=== PATIENT | male | born 1975 | race Caucasian/White ===

== ENCOUNTER 2016-12-01 21:31 | Emergency (ER) | payer OTHER | END 2016-12-02 00:46 | disposition home or self-care (01) | LOC: FER 21:31 | DX: G89.18 Other acute postprocedural pain (principal); M25.512 Pain in left shoulder; Z88.0 Allergy status to penicillin; Z98.890 Other specified postprocedural states | CPT/HCPCS: J1170; J1885; J2795; J3010 ==

== ENCOUNTER → 2016-12-01 | Day surgery (SDC) | payer OTHER ==
[~2016-12-01] VITALS: Ht 185.4 cm; Wt 101.3 kg
[2016-12-01 07:07] LABS: HCT 43.8 % (42.0-52.0); MCH 30.2 pg (25.0-31.0); MCHC 34.2 g/dL (32.0-36.0); MCV 88.1 fL (78.0-100.0); MPV 8.1 fL (6.0-9.5); RBC 4.97 M/uL (4.70-6.00); RDW 14.2 % (11.5-14.0); WBC 8.2 K/uL (4.0-10.5)
== END | disposition home or self-care (01) ==
LOC: FAS 06:26
PROVIDERS: Legal Medicine
DX: M75.102 Unspecified rotator cuff tear or rupture of left shoulder, not specified as traumatic (principal); M19.012 Primary osteoarthritis, left shoulder; F17.210 Nicotine dependence, cigarettes, uncomplicated; Z88.0 Allergy status to penicillin
CPT/HCPCS: 36415; 71010; C1713; J2405; J2704; J2795; J3010

== ENCOUNTER 2020-09-28 15:57 | Emergency (ER) | payer OTHER ==
[~2020-09-28 15:57] MED LIST: BACTRIM DS TAB1 EACH PO; CIPRO500 MG PO; KEFLEX500 MG PO; NAPROXEN500 MG PO; NORCO 5-325 TA1 EACH PO
== END 2020-09-28 18:11 | disposition home or self-care (01) ==
LOC: FER 15:57
DX: S62.141A Displaced fracture of body of hamate [unciform] bone, right wrist, initial encounter for closed fracture (principal); S62.111A Displaced fracture of triquetrum [cuneiform] bone, right wrist, initial encounter for closed fracture; Z87.81 Personal history of (healed) traumatic fracture; Z88.0 Allergy status to penicillin; Z91.018 Allergy to other foods; W06.XXXA Fall from bed, initial encounter; Y92.149 Unspecified place in prison as the place of occurrence of the external cause
CPT/HCPCS: 73100; 73110; 73130